=== PATIENT | female | born 1975 | race African-American/Black ===

== ENCOUNTER 2017-01-17 15:21 | Emergency (ER) | payer MEDICAID ==
[~2017-01-17] VITALS: Ht 162.6 cm; Wt 68.0 kg
[~2017-01-17 15:21] MED LIST: BACTRIM-DS1 EA ORAL; DEPAKOTE500 MG PO; DOCUSATE SODIU100 MG PO; GABAPENTIN300 MG PO; KLONOPIN1 MG PO; LEVEMIR FL100 UNIT/1 SUBQ; LEXAPRO20 MG ORAL; MIRTAZAPINE7.5 MG ORAL; NORCO 5-325 TA1 EACH ORAL; NOVOLOG100 UNITS1; PLAVIX75 MG PO; SIMVASTATIN10 MG PO; TRAMADOL HCL100 M1 PO; TRAZODONE HCL50 MG PO; VALIUM5 MG ORAL; VICODIN 5-5001 EACH PO; VISTARIL10 MG ORAL; VISTARIL25 MG ORAL
--- NOTE | 2017-01-17 18:27 | Emergency Room Report ---
History of Present Illness General Chief Complaint: Vaginal Source: EMS Present Illness HPI 41 YO Female presents to the ED c/o vaginal bleeding x 2 days. pt. has left sided hemiplegia and is mainly bedbound. pt. states she usually does not have a period, and had surgery in 1999 which minimized her bleeding to about 3x per year. pt. reports cramping, passage of large clots, and states hx of thickened endometrium. denies N/VF/C. states she previously was rx'd iron for her bleeding to avoid anemia because she is against transfusions. pt. presents with caregiver who denies skin color changes, changes in mentation/confusion. Pt is incontinent, and denies dysuria. Denies CP, Palpitations, LOC, AMS, dizziness, Changes in Vision, Sensation, paresthesias, or a sudden severe headache. Allergies: Coded Allergies: MORPHINE (Unverified Allergy, Intermediate, Altered Mental Status, 09/10/12) Patient History Past Medical History: see triage record Past Surgical History: none Pertinent Family History: none Now: No Immunizations: UTD Reviewed Nursing Documentation: PMH: Agreed, PSxH: Agreed Nursing Documentation-PMH Past Medical History: No History, Except For Hx Cardiac Problems: Yes Hx Hypertension: Yes Hx Diabetes: Yes Hx Cancer: No Hx Gastrointestinal Problems: Yes Hx Neurological Problems: Yes Hx Cerebrovascular Accident: Yes Hx Seizures: Yes Hx Paralysis: Yes - left side Hx Weakness: Yes Review of Systems All Other Systems: negative except mentioned in HPI Physical Exam Vital Signs Date Time Temp Pulse Resp B/P Pulse Ox O2 Delivery O2 Flow Rate FiO2 01/17/17 15:10 98.4 90 20 146/105 98 Room Air Medical Decision Making PA Attestation Dr. García is my supervising Physician whom patient management has been discussed with. Diagnostic Impression: Primary Impression: Vaginal bleeding ER Course 41 YO Female presents to the ED c/o vaginal bleeding x 2 days. pt. has left sided hemiplegia and is mainly bedbound. pt. states she usually does not have a period, and had surgery in 1999 which minimized her bleeding to about 3x per year. pt. reports cramping, passage of large clots, and states hx of thickened endometrium. denies N/VF/C. states she previously was rx'd iron for her bleeding to avoid anemia because she is against transfusions. pt. presents with caregiver who denies skin color changes, changes in mentation/confusion. Pt is incontinent, and denies dysuria. Denies CP, Palpitations, LOC, AMS, dizziness, Changes in Vision, Sensation, paresthesias, or a sudden severe headache. Ddx considered but are not limited to: Fibroid, ectopic , Malignancy, , DUB Vital signs: are WNL, pt. is afebrile Pelvic Exam: dark clots noted in vaginal vault. H&PE are most consistent with: DUB, will do imaging to r/o fibroids, and UA to r /o infection. CBC not warranted as will not change coordinator due to pt. being against receiving blood transfusions. ORDERS: -UA: RBC's and occult blood TNTC, no infection - urine Hcg: Negative - Vaginal US: echogenic 3mm in the cervix, no increased size of endometrium, or fibroids-- echogenic structure may represent clots, but recommend BHcg and OBGYN eval to r/o malignancy per official radiology report. ED INTERVENTIONS: -Toradol IM DISCHARGE: At this time pt. is stable for d/c to home. Will provide printed patient care instructions, and any necessary prescriptions. Care plan and follow up instructions have been discussed with the patient prior to discharge. Labs Test 01/17/17 18:04 Urine Color Red Urine Appearance Turbid Urine pH 6 (4.5-8.0) Urine Specific [place] 1.005 (1.005-1.035) Urine Protein 3+ (NEGATIVE) Urine Glucose (UA) 4+ (NEGATIVE) Urine Ketones 1+ (NEGATIVE) Urine Occult Blood 5+ (NEGATIVE) Urine Nitrite Negative (NEGATIVE) Urine Bilirubin Negative (NEGATIVE) Urine Urobilinogen Normal MG/DL (0.0-1.0) Urine Leukocyte Esterase 1+ (NEGATIVE) Urine RBC Tntc /HPF (0 - 2) Urine WBC 2-4 /HPF (0 - 2) Urine Squamous Epithelial Cells None /LPF (NONE/OCC) Urine Bacteria None /HPF (NONE) Urine HCG, Qualitative Negative Last Vital Signs Date Time Temp Pulse Resp B/P Pulse Ox O2 Delivery O2 Flow Rate FiO2 01/17/17 15:10 98.4 90 20 146/105 98 Room Air Disposition: HOME, SELF-CARE Condition: Stable Scripts Multivit With Calcium,Iron,Min (MULTIPLE VITAMINS FOR WOMEN) 1 Each Tablet 1 EACH PO DAILY, #30 TAB Prov: Dorina Kauffman 01/17/17 Iron,Carbonyl/Vit C/Vit B12/Fa (IRON 100 PLUS TABLET) 1 Each Tablet 1 EACH PO DAILY, #30 TAB Prov: Dorina Kauffman 01/17/17 Ibuprofen* (MOTRIN*) 400 Mg Tablet 400 MG ORAL THREE TIMES A DAY, #30 TAB 0 Refills Prov: Dorina Kauffman 01/17/17 Referrals: [facility],REFERRING (PCP) Patient Instructions: Abnormal Uterine Bleeding Additional Instructions: Take medications as directed. Follow up with a Primary Care Provider in 3-5 days, even if your symptoms have resolved. --Please review list of primary care clinics, if you do not already have a primary care provider Return sooner to ED if new symptoms occur, or current symptoms become worse. - Please note that this Emergency Department Report was dictated using [employer]section hand helper technology software, occasionally this can lead to erroneous entry secondary to interpretation by the dictation equipment. Dorina Kauffman Jan 17, 2017 18:27
[2017-01-17 18:29] LABS: APPEARANCE,URINE TURBID; KETONES,URINE 1+ (NEGATIVE); LEUKOCYTE ESTERASE ,URINE 1+ (NEGATIVE); NITRITE,URINE NEGATIVE (NEGATIVE); PH,URINE 6 (4.5-8.0); PROTEIN,URINE 3+ (NEGATIVE); UROBILINOGEN,URINE NORMAL MG/DL (0.0-1.0)
[2017-01-17 18:31] LABS: RBC,URINE TNTC /HPF (0 - 2)
[2017-01-17] MEDS ORDERED: Ketorolac 30mg Inj IV ONE (19:00)
[2017-01-17] MEDS ORDERED: IBUPROFEN400 MG ORAL (19:34)
[2017-01-17] MEDS ORDERED: MULTIPLE VITAM1 EAC4 PO (19:34)
[2017-01-17] MEDS ORDERED: IRON 100 PLUS1 EACH PO (19:34)
[2017-01-17] MEDS ORDERED: Ketorolac 60mg Inj IM ONE (19:45)
[2017-01-17 20:43] VITALS: BP 140/91
[2017-01-17 20:44] VITALS: BP 140/91
--- NOTE | 2017-01-20 08:39 | Diagnostic Imaging Report ---
Indication: Pelvic pain and cramping Technique: Transabdominal and endovaginal pelvic ultrasound Comparison: None Findings: Uterus measures 8.8 x 5.2 x 4.1 cm without gross focal abnormality. The endometrial echo complex measures approximately 3 mm. There is a heterogeneous area in the region of the cervix. The left ovary measures 3.3 x 1.4 cm and is unremarkable. The right ovary seen transabdominally measures 3.6 x 2.9 cm and is grossly unremarkable. There is no free pelvic fluid. Impression: Slight heterogeneous echogenicity of the uterus without gross focal abnormality. Endometrial echo complex measures approximately 0.3 cm. Clinical correlation recommended. Area of heterogeneous echogenicity in the region of the cervix/vagina. Reported history of pelvic cramping and bleeding. Although findings could represent hemorrhage or clot, possibility of a mass cannot be excluded. Correlation with beta hCG and gynecologic evaluation recommended. Short-term followup ultrasound may be obtained as indicated.
== END 2017-01-17 20:45 | disposition home or self-care (01) ==
LOC: EDBD 15:21 → EMR 16:11
DX: N93.9 Abnormal uterine and vaginal bleeding, unspecified (principal); G81.94 Hemiplegia, unspecified affecting left nondominant side; Z88.6 Allergy status to analgesic agent; I10 Essential (primary) hypertension; E11.9 Type 2 diabetes mellitus without complications
CPT/HCPCS: 76830; 76856; 81003; 81025; 96372; 99283